=== PATIENT | female | born 1990 ===

== ENCOUNTER 2019-04-15 21:32 | Emergency (ER) | payer OTHER ==
[~2019-04-15] VITALS: Ht 167.6 cm; Wt 77.3 kg
[2019-04-15 21:36] VITALS: TEMP 98.5
[2019-04-15] MEDS ORDERED: SYNTHROID0.1 MG/TAB PO (21:42)
[2019-04-15] MEDS ORDERED: MELATONIN1 MG PO (21:43)
[2019-04-15] MEDS ORDERED: SOMA 350MG350 MG/TAB PO (21:43)
[2019-04-15 22:17] LABS: BASO % 0.6 % (0.0-2.0); EOS # 0.1 (0.0-0.7); EOS % 1.3 % (0-4.0); GRAN # 2.7 (1.4-6.5); GRAN % 59.4 % (42.2-75.2); HEMATOCRIT 25.8 % (37.0-47.0); LYMPH # 1.5 (1.2-3.4); LYMPH % 32.7 % (20.0-51.0); MEAN CELL VOLUME 78 fl (80.0-100.0); MEAN CORPUSCULAR HEMOGLOBIN 24 pg (27.0-31.0); MEAN CORPUSCULAR HGB CONC 31 g/dl (33.0-37.0); MEAN PLATELET VOLUME 11.4 fl (7.4-10.4); MONO # 0.3 (0.1-0.6); MONO % 5.8 % (1.7-9.3); PLATELET COUNT 199 K/mm3 (130-400); REDCELL DISTRIBUTION WIDTH-CV 19.3 % (11.5-14.5)
[2019-04-15 22:19] LABS: ACETAMINOPHEN < 10 ug/mL (10-30); ALANINE AMINOTRANSFERASE 7 U/L (9-52); ALBUMIN 3.5 gm/dL (3.5-5.0); ALCOHOL(ethanol),MEDICAL < 10 mg/dL; ALKALINE PHOSPHATASE 52 U/L (50-136); ANION GAP 8 mmol/L (7-16); AST,SGOT 20 U/L (15-37); BILIRUBIN,TOTAL < 0.1 mg/dL (0.0-1.0); BLOOD UREA NITROGEN 8 mg/dL (7-17); CALCIUM 7.8 mg/dL (8.4-10.2); CARBON DIOXIDE 22 mmol/L (22-30); CHLORIDE 108 mmol/L (98-107); CREATININE, serum 0.82 (0.52-1.25); GLUCOSE 92 mg/dL (74-106); POTASSIUM 3.4 mmol/L (3.4-5.0); SALICYLATE < 1.0 mg/dL; SODIUM 138 mmol/L (137-145); TOTAL PROTEIN 6.4 gm/dL (6.4-8.2)
[2019-04-15 22:35] LABS: PROLACTIN 23.7 ng/mL (3.0-18.6)
[2019-04-15 23:46] LABS: TRICYCLIC ANTIDEPRESS URINE NEGATIVE
[2019-04-15] MEDS ORDERED: SUBOXONE 2 MG-01 TAB (23:59)
[2019-04-16 00:08] VITALS: BP 104/62; PULSE 99
== END 2019-04-16 00:08 | disposition home or self-care (01) ==
LOC: COL.ER 21:32
PROVIDERS: Nurse Practitioner Primary Care
DX: T40.4X5A Adverse effect of other synthetic narcotics, initial encounter (principal); G40.89 Other seizures; F17.210 Nicotine dependence, cigarettes, uncomplicated